=== PATIENT | female | born 1985 | race Caucasian/White ===

== ENCOUNTER 2021-03-17 22:04 | Emergency (ER) | payer MEDICARE, MEDICAID ==
[~2021-03-17] VITALS: Ht 170.2 cm; Wt 79.8 kg
[2021-03-17] MEDS ORDERED: LEVO-T50 MCG PO (22:10)
[2021-03-17] MEDS ORDERED: LAMICTAL150 MG PO (22:11)
[2021-03-17] MEDS ORDERED: CYMBALTA60 MG PO (22:11)
[2021-03-17 22:23] LABS: URINE BLOOD NEGATIVE (Negative); URINE CLARITY SL CLOUDY; URINE COLOR YELLOW; URINE GLUCOSE-RANDOM NEGATIVE (Negative); URINE KETONES NEGATIVE (Negative); URINE LEUKOCYTES NEGATIVE (Negative); URINE NITRITE NEGATIVE (Negative); URINE PROTEIN TRACE (Negative); URINE SPECIFIC GRAVITY >= 1.030 (1.005-1.030)
[2021-03-17 22:24] LABS: URINE BILIRUBIN 1+ (Negative)
[2021-03-17 22:27] LABS: ICTOTEST (BILI CONFIRMATORY) Negative (Negative)
[2021-03-17 22:30] LABS: AMP/METHAMP Negative (Negative); BARBITURATES Negative (Negative); BENZODIAZEPINES Negative (Negative); COCAINE Negative (Negative); METHADONE Negative (Negative); OPIATES Negative (Negative); PCP Negative (Negative); THC POSITIVE (Negative)
[2021-03-17 22:40] LABS: HEMATOCRIT 38.2 % (37.0-47.0); HEMOGLOBIN 13.4 gm/dL (12.0-15.0); MCHC 35.2 g/dL (28.0-37.0); MCV 85.4 fL (80.0-100.0); MPV 9.9 fl. (7.2-11.1); RBC 4.47 mil/uL (4.20-5.00); RDW-CV 12.6 % (10.5-14.5); WBC 9.1 thou/uL (4.0-11.0)
[2021-03-17 22:44] LABS: CALCIUM 8.7 mg/dL (8.5-10.1); CREATININE 1.1 mg/dL (0.6-1.3); POTASSIUM 3.4 mmol/L (3.5-5.1)
[2021-03-17 22:48] LABS: ALBUMIN 4.3 g/dL (3.4-5.0); TOTAL BILIRUBIN 0.6 mg/dL (<0.1-1.0); TOTAL PROTEIN 7.2 g/dL (6.4-8.2)
[2021-03-17 23:01] LABS: ALCOHOL < 10 mg/dL (<10); SALICYLATE < 2.8 mg/dL (2.8-20.0)
[2021-03-17 23:08] LABS: ACETAMINOPHEN < 2 ug/mL (10-30)
[2021-03-18 00:27] VITALS: BP 116/81
--- NOTE | 2021-03-18 11:49 | EKG ---
[place] [address] ELECTROCARDIOGRAM REPORT Name: GLORY HOOVER Room: [facility]#: [id number] Admission: 03/17/21 Attend Phys: Discharge: 03/18/21 Date of : 85 Date of Service: 03/17/212208 Report #: [id number] THIS REPORT FOR: //name// [facility] ED Test Date: 2021-03-17 Test Time: 22:09:53 Pat Name: GLORY HOOVER Department: Room: Gender: Rn Placement: : 1985 Requested By: Priti Manriquez Order Number: [id number] MD: Tello Shetty Measurements Intervals [place] Rate: 128 P: 65 WA: 140 QRS: 66 QRSD: 71 T: -86 QT: 365 QTc: 533 Interpretive Statements Sinus tachycardia Borderline repolarization abnormality Prolonged QT interval No previous ECG available for comparison Electronically Signed On 03-18-2021 11:49:10 CDT by Tello Shetty [email or web address] <ELECTRONICALLY SIGNED> By: Tello Shetty MD, [facility] 03/18/21 114 08 08 Tello Shetty MD, [facility] /EPI
== END 2021-03-18 00:29 | disposition home or self-care (01) ==
LOC: M.ERS 22:04
PROVIDERS: Personal Emergency Response Attendant
DX: T40.7X1A Poisoning by cannabis (derivatives), accidental (unintentional), initial encounter (principal); J45.909 Unspecified asthma, uncomplicated; E11.9 Type 2 diabetes mellitus without complications; Z88.6 Allergy status to analgesic agent; Z88.5 Allergy status to narcotic agent; Z90.49 Acquired absence of other specified parts of digestive tract; Y92.89 Other specified places as the place of occurrence of the external cause